=== PATIENT | female | born 1980 | race American Indian/Alaskan Native ===

== ENCOUNTER 2020-03-02 10:12 | Emergency (ER) | payer OTHER ==
[~2020-03-02] VITALS: Ht 165.1 cm; Wt 135.2 kg
[2020-03-02] MEDS ORDERED: CLONIDINE HCL 0.1 MG TAB PO ONE (10:45)
[2020-03-02] MEDS ORDERED: ACETAMINOPHEN 325 MG TAB PO ONE (10:45)
[2020-03-02] MEDS ORDERED: CLONIDINE HCL 0.1 MG TAB ONE (11:00)
[2020-03-02] MEDS ORDERED: ACETAMINOPHEN 325 MG TAB ONE (11:00)
--- NOTE | 2020-03-02 11:29 | Diagnostic Imaging Report ---
KNEE 2 VIEW LT - HOPD - HISTORY: pain COMPARISON: None available. FINDINGS: Bones: No acute displaced fracture. Osseous alignment is within normal limits. Joints: There is mild joint space narrowing and bone production compatible with osteoarthritis. Soft tissues: The soft tissues appear unremarkable. IMPRESSION: No acute radiographic abnormality. Mild left knee osteoarthritis. Signed by: Alex Rogers MD on 03/02/2020 11:25 AM
[2020-03-02 11:57] VITALS: BP 204/124
== END 2020-03-02 12:06 | disposition home or self-care (01) ==
LOC: FSED 10:12
DX: M25.562 Pain in left knee (principal); S83.92XA Sprain of unspecified site of left knee, initial encounter; M17.12 Unilateral primary osteoarthritis, left knee
CPT/HCPCS: 99284